=== PATIENT | female | born 1970 | race Caucasian/White ===

== ENCOUNTER → 2018-05-01 | Day surgery (SDC) | payer BC ==
[~2018-05-01] MED LIST: LIDOCAINE 2% MDV (20MG/ML) 20ML VIAL IV ONE; PROPOFOL 10 MG/ML VIAL IV ONE
--- NOTE | 2018-05-04 09:30 | Operative Note ---
DATE OF SURGERY: SURGEON: Dinesh Mehta MD OPERATION: ESOPHAGOGASTRODUODENOSCOPY. INDICATIONS: This is a 47-year-old female with history of epigastric pain who presented for esophagogastroduodenoscopy. POSTOPERATIVE DIAGNOSES: 1. Normal esophagus and small gastric pouch with postsurgical changes consistent with a Lap-Band. 2. Normal esophagus and duodenum. ANESTHESIA: Sedation is per Anesthesia. Pulse oximetry was monitored throughout the procedure to maintain O2 saturation of 90% or greater. Supplemental oxygen was administered via nasal cannula. Cardiac and vital signs were monitored throughout the duration of the procedure, and they were stable. The procedure of esophagogastroduodenoscopy and risks and benefits of the procedure, including the risk of bleeding and perforation, among others, were explained to the patient who voiced understanding and agreed to have the procedure done. Physical examination was performed, and the patient was found stable for sedation. PROCEDURE: The patient was placed in the left lateral position. Sedation was initiated. An Olympus [id number] gastroscope was introduced into the oral cavity and advanced to the proximal esophagus without difficulty. The esophageal mucosa was carefully examined upon introduction of the gastroscope. The proximal and mid and distal esophageal mucosa appeared normal. The gastroscope was then advanced into the stomach, and postsurgical changes consistent with Lap-Band were noted. The gastroscope was then advanced into the descending duodenum without difficulty. The duodenal bulb and descending duodenum appeared normal. The gastroscope was then withdrawn into the stomach and retroflexion was performed. There were no other lesions noted. The gastroscope was then withdrawn while carefully examining the gastric and esophageal mucosa. No other lesions noted. The gastric body was normal. The gastroscope was then withdrawn and the procedure was terminated. She tolerated the procedure well without any immediate complications. The patient remained with stable vital signs and was transferred to the recovery room. RECOMMENDATIONS: 1. The patient is to continue on her proton pump inhibitors. 2. I would be happy to see her back in the office as needed. Thank you for allowing me to participate in the care of your patient. CC: DO SOPHIE Strange
== END | disposition home or self-care (01) ==
LOC: HOP 11:45
PROVIDERS: ATTEND Internal Medicine Gastroenterology
DX: R10.13 Epigastric pain (principal); E11.9 Type 2 diabetes mellitus without complications; K21.9 Gastro-esophageal reflux disease without esophagitis; I10 Essential (primary) hypertension; R00.2 Palpitations; E78.00 Pure hypercholesterolemia, unspecified; F32.9 Major depressive disorder, single episode, unspecified

== ENCOUNTER 2018-08-26 10:56 | Emergency (ER) | payer BC ==
[2018-08-26] MEDS ORDERED: ONDANSETRON HCL IV 4 MG/2 ML VIAL IV ONE (11:34)
[2018-08-26] MEDS ORDERED: 0.9 % SODIUM CHLORIDE 1,000 ML BAG IV ONE (11:34)
--- NOTE | 2018-08-26 11:44 | Emergency Department Record ---
History of Present Illness - General Chief Complaint: Abdominal Pain Stated Complaint: BLOATED,R KIDNEY PAIN Time Seen by Provider: 08/26/18 11:28 Source: Patient, RN notes reviewed Mode of Arrival: Ambulatory - History of Present Illness Initial Comments: three days of vomiting and diarrhea and vomiting 6 times and 10 diarrhea stools and right flank pain and upper abdominal pain bilateral and PNH GB , gastric banding and tubal and elbow surgery and last surg 2007, PMH of kidney stones Onset/Timin -: Days(s) Location: Diffuse Migration to: R Flank Severity: Mild Severity scale (1-10): 4 Quality: Aching Improves With: Nothing Worsens With: Nothing Associated Symptoms: Diarrhea, Fever, Nausea, Vomiting - Related Data Patient : No Home Medications Medication Instructions Recorded Confirmed Last Taken Cholecalciferol (Vitamin D3) 2,000 unit PO DAILY 08/26/18 08/26/18 Unknown [Vitamin D3] Previous Rx's Medication Instructions Recorded Dicyclomine HCl [Bentyl] 10 mg PO Q8H #20 cap 08/26/18 Ondansetron [Zofran Odt] 4 mg PO Q6HR #10 tab.rapdis 08/26/18 Allergies Allergy/AdvReac Type Severity Reaction Status Date / Time ciprofloxacin [From Cipro] AdvReac DIZZINESS Verified 08/26/18 11:08 Travel Screening - Travel/Exposure Within Last 30 Days Have you traveled within the last 30 days?: No Review of Systems Reviewed: No additional complaints except as noted below Constitutional: Reports: As per HPI. Denies: Chills, Fever, Malaise, Night sweats, Weakness, Weight change Eyes: Reports: As per HPI. Denies: Eye discharge, Eye pain, Photophobia, Vision change ENT: Reports: As per HPI. Denies: Congestion, Dental pain, Ear pain, Epistaxis , Hearing loss, Throat pain Respiratory: Reports: As per HPI. Denies: Cough, Dyspnea, Hemoptysis, Stridor, Wheezes Cardiovascular: Reports: As per HPI. Denies: Arrhythmia, Chest pain, Dyspnea on exertion, Edema, Murmurs, Orthopnea, Palpitations, Paroxysmal nocturnal dyspnea, Rheumatic Fever, Syncope Endocrine: Reports: As per HPI. Denies: Fatigue, Heat or cold intolerance, Polydipsia, Polyuria Gastrointestinal: Reports: As per HPI, Abdominal pain, Diarrhea, Vomiting. Denies: Constipation, Hematemesis, Hematochezia, Melena, Nausea Genitourinary: Reports: As per HPI. Denies: Abnormal menses, Discharge, Dyspareunia, Dysuria, Frequency, Hematuria, Incontinence, Retention, Urgency Musculoskeletal: Reports: As per HPI. Denies: Arthralgia, Back pain, Gout, Joint swelling, Myalgia, Neck pain Skin: Reports: As per HPI. Denies: Bruising, Change in color, Change in hair/ nails, Lesions, Pruritus, Rash Neurological: Reports: As per HPI. Denies: Abnormal gait, Confusion, Headache, Numbness, Paresthesias, Seizure, Tingling, Tremors, Vertigo, Weakness Psychiatric: Reports: As per HPI. Denies: Anxiety, Auditory hallucinations, Depression, Homicidal thoughts, Suicidal thoughts, Visual hallucinations Hematological/Lymphatic: Reports: As per HPI. Denies: Anemia, Blood Clots, Easy bleeding, Easy bruising, Swollen glands Past Medical History - SOCIAL HISTORY Smoking Status: Current every day smoker Alcohol Use: None Drug Use: None - RESPIRATORY Hx Respiratory Disorders: Yes Hx Sleep Apnea: Yes Hx of CPAP: Yes - CARDIOVASCULAR Hx Cardio Disorders: Yes Hx Hypertension: Yes Hx Palpitations: Yes (tachycardia) Comment:: high cholesterol - NEURO Hx Neuro Disorders: No - GI Hx GI Disorders: Yes Hx Diverticulitis: Yes Hx Reflux: Yes Hx Nausea/Vomiting: Yes (nausea) Hx Ulcer: Yes - Hx Genitourinary Disorders: Yes Hx Kidney Stones: Yes Hx UTI: Yes Comment:: navin - ENDOCRINE Hx Endocrine Disorders: Yes Hx Diabetes: Yes - MUSCULOSKELETAL Hx Musculoskeletal Disorders: No - PSYCH Hx Psych Problems: Yes Hx Depression: Yes - HEMATOLOGY/ONCOLOGY Hx Hematology/Oncology Disorders: No Family Medical History Any Significant Family History?: No Physical Exam - General General Appearance: Alert, Oriented x3, Cooperative, Mild distress - Head Head exam: Normal inspection - Eye Eye exam: Normal appearance, PERRL Pupils: Normal accommodation - ENT ENT exam: Normal exam, Mucous membranes moist, Normal external ear exam, Normal orophraynx, TM's normal bilaterally Ear exam: Normal external inspection. negative: External canal tenderness Nasal Exam: Normal inspection. negative: Discharge, Sinus tenderness Mouth exam: Normal external inspection, Tongue normal Teeth exam: Normal inspection. negative: Dental caries Throat exam: Normal inspection. negative: Tonsillar erythema, Tonsillar exudate - Neck Neck exam: Normal inspection, Full ROM. negative: Tenderness - Respiratory Respiratory exam: Normal lung sounds bilaterally. negative: Respiratory distress - Cardiovascular Cardiovascular Exam: Regular rate, Normal rhythm, Normal heart sounds - GI/Abdominal GI/Abdominal exam: Soft, Normal bowel sounds, Tenderness (upper abd pain and right flank pain) - Rectal Rectal exam: Deferred - exam: Deferred - Extremities Extremities exam: Normal inspection, Full ROM, Normal capillary refill. negative: Tenderness - Back Back exam: Reports: Normal inspection, Full ROM. Denies: Muscle spasm, Rash noted, Tenderness - Neurological Neurological exam: Alert, Normal gait, Oriented X3, Reflexes normal - Psychiatric Psychiatric exam: Normal affect, Normal mood - Skin Skin exam: Dry, Intact, Normal color, Warm Course Vital Signs 08/26/18 11:11 Temperature 98.5 F Pulse Rate 121 H Respiratory 20 Rate Blood Pressure 148/93 Pulse Ox 93 L - Reevaluation(s) Reevaluation #1: feeling slightly better 08/26/18 14:38 Medical Decision Making - Lab Data Result diagrams: 08/26/18 11:30 08/26/18 11:30 Disposition Clinical Impression: Viral syndrome Abdominal pain Qualifiers: Abdominal location: upper abdomen, unspecified Qualified Code(s): R10.10 - Upper abdominal pain, unspecified Gastritis Qualifiers: Gastritis type: unspecified gastritis Chronicity: acute Gastritis bleeding: without bleeding Qualified Code(s): K29.00 - Acute gastritis without bleeding Disposition: Home, Self-Care Condition: (1) Good Instructions: Gastroenteritis (ED), Gastritis (ED) Additional Instructions: follow up with Dr Esposito in 2 days sooner if worse or return to ED nothing by mouth for 2 hours than clear liquids for 24 hours than bland foods Prescriptions: Ondansetron [Zofran Odt] 4 mg PO Q6HR #10 tab.rapdis Dicyclomine HCl [Bentyl] 10 mg PO Q8H #20 cap Forms: Patient Portal Access Time of Disposition: 14:44 Quality - Quality Measures Quality Measures: N/A - Blood Pressure Screening Does Patient Have Any of the Following: No, Active Dx of HTN Blood Pressure Classification: Hypertensive Reading Systolic Measurement: 148 Diastolic Measurement: 93 Screening for High Blood Pressure: Patient Exclusion, Hx of HTN [[id number]]
[2018-08-26 11:55] LABS: BASO % 0.2 % (0-6); HEMATOCRIT 44.2 % (35.0-47.0); HEMOGLOBIN 15.3 gm/dl (11.6-16.0); LYMPH % 4.9 % (16-45); MEAN CELL VOLUME 86.5 fl (81-97); MEAN CORPUSCULAR HEMOGLOBIN 29.9 pg (27-33); MEAN CORPUSCULAR HGB CONC 34.6 g/dl (32-36); MONO % 1.6 % (0-9); PLATELET COUNT 312 K/uL (130-400); RED BLOOD COUNT 5.11 M/uL (3.80-5.40); WHITE BLOOD COUNT W/O DIFF 11.8 K/uL (4.2-12.2)
[2018-08-26] MEDS ORDERED: HYDROMORPHONE HCL 2 MG/ML VIAL IVP ONE (12:08)
[2018-08-26 12:11] LABS: BLOOD UREA NITROGEN 19 mg/dL (6-20); CREATININE 0.8 mg/dL (0.5-0.9); EST GLOMERULAR FILTRATION RATE > 60 mL/min; LIPASE 13 U/L (13-60); TOTAL PROTEIN 7.6 g/dL (6.6-8.7)
[2018-08-26 12:13] LABS: GLUCOSE,RANDOM 261 mg/dL (74-109)
[2018-08-26 12:16] LABS: ALBUMIN 4.3 g/dL (4.0-5.0); ALKALINE PHOSPHATASE 81 U/L (45-87); ALT/SGPT 23 U/L (<33); AST/SGOT 17 U/L (10.0-35.0)
[2018-08-26 12:22] LABS: BILIRUBIN,DIRECT < 0.2 mg/dL (0-0.3)
[2018-08-26] MEDS ORDERED: 0.9 % SODIUM CHLORIDE 1000ML 1,000 ML IV ONE (12:56)
[2018-08-26] MEDS ORDERED: ONDANSETRON HCL IV 4 MG/2 ML VIAL IVP ONE (12:57)
[2018-08-26 13:09] LABS: URINE APPEARANCE CLEAR; URINE BILIRUBIN NEGATIVE (NEGATIVE); URINE BLOOD NEGATIVE (NEGATIVE); URINE COLOR YELLOW; URINE KETONE TRACE (NEGATIVE); URINE LEUKOCYTE ESTERASE NEGATIVE (NEGATIVE); URINE NITRITE NEGATIVE (NEGATIVE); URINE PROTEIN NEGATIVE (NEGATIVE)
[2018-08-26 13:30] LABS: URINE GLUCOSE (UA) >=1000 mg/dL (NEGATIVE)
--- NOTE | 2018-08-27 13:56 | CT SCAN REPORT ---
EXAM: NONCONTRAST CT OF THE ABDOMEN AND PELVIS HISTORY: RIGHT FLANK PAIN, NAUSEA, VOMITING, DIARRHEA, FEVER, BLOATING FOR TWO DAYS. TECHNIQUE: Noncontrast CT of the abdomen and pelvis was obtained. Comparison: Noncontrast CT of the abdomen and pelvis 07/07/16. FINDINGS: The lung bases are clear. Mild circumferential thickening appearance of the distal esophagus. Unremarkable noncontrast appearance of the liver, spleen, adrenal glands, and pancreas. The gallbladder is surgically absent. No calculi identified within the kidneys or ureters. No hydronephrosis. The urinary bladder is collapsed, otherwise unremarkable. Moderate distention of the stomach with gas and fluid. No obvious obstructing lesion. The small bowel is nondilated. No focal colonic thickening or inflammatory changes. Colonic diverticulosis without evidence of acute diverticulitis. A lap band device is in place. Alignment appears appears relatively similar from comparison CT. The abdominal aorta is calcified without evidence of aneurysmal dilatation. No appreciable mesenteric or retroperitoneal lymphadenopathy. Intrauterine device within the uterus. Previously identified left adnexal cysts are no longer seen. Right adnexal 4.3 x 3.7 cm adnexal structure is unchanged in size from prior CT. Lumbar spine degenerative findings. Degenerative changes in the femoroacetabular joints bilaterally. IMPRESSION: 1. NO DEFINITE ACUTE ABDOMINAL OR PELVIC FINDINGS. NO EVIDENCE OF UROLITHIASIS OR OBSTRUCTIVE UROPATHY. 2. NONSPECIFIC MODERATE DISTENTION OF THE STOMACH WITH GAS AND FLUID. THE SMALL BOWEL LOOPS ARE NOT DILATED. 3. UNCHANGED APPEARANCE OF RIGHT ADNEXAL CYSTIC STRUCTURES SINCE 07/07/16 COMPARISON. PREVIOUSLY IDENTIFIED LEFT ADNEXAL CYSTS ARE NO LONGER WELL SEEN. 4. COLONIC DIVERTICULOSIS WITHOUT EVIDENCE OF ACUTE DIVERTICULITIS. 5. GASTRIC LAP BAND IS PRESENT, SIMILAR IN APPEARANCE FROM PRIOR STUDY. JOB NUMBER: [id number] [facility]
== END 2018-08-26 15:10 | disposition home or self-care (01) ==
LOC: ER 10:56
DX: K29.00 Acute gastritis without bleeding (principal); R10.12 Left upper quadrant pain; R10.11 Right upper quadrant pain; B34.9 Viral infection, unspecified; R19.7 Diarrhea, unspecified; R11.2 Nausea with vomiting, unspecified; F17.210 Nicotine dependence, cigarettes, uncomplicated; Z98.84 Bariatric surgery status; Z87.442 Personal history of urinary calculi
CPT/HCPCS: 74176; 80048; 80076; 81003; 83690; 85027; 96361; 96374; 96375; 99284; J2405; J7030